=== PATIENT | male | born 1950 | race Two or more races ===

== ENCOUNTER 2016-09-27 22:47 | Emergency (ER) | payer BC ==
[2016-09-27 23:12] VITALS: BP 153/76; PULSE 86; TEMP 98.3; BMI 37.5
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
== END 2016-09-28 02:43 | disposition home or self-care (01) ==
LOC: JER 22:47
DX: S05.12XA Contusion of eyeball and orbital tissues, left eye, initial encounter (principal); S00.211A Abrasion of right eyelid and periocular area, initial encounter; S00.01XA Abrasion of scalp, initial encounter; S21.012A Laceration without foreign body of left breast, initial encounter; Y04.2XXA Assault by strike against or bumped into by another person, initial encounter; Y93.89 Activity, other specified; Y92.018 Other place in single-family (private) house as the place of occurrence of the external cause; Y07.499 Other family member, perpetrator of maltreatment and neglect
CPT/HCPCS: 70450-TC; 71020-TC; 71101-TC; 99282-25

== ENCOUNTER 2019-02-01 12:41 | Emergency (ER) | payer OTHER, BC ==
[2019-02-01] MEDS ORDERED: DIPHTH,PERTUSS(ACELL),TET 0.5 ML DISP.SYRIN IM ONE ×2 (12:44→13:31)
--- NOTE | 2019-02-01 12:49 | PDOC ---
Rapid Medical Evaluation Chief Complaint: Laceration Time Seen by Provider: 02/01/19 12:44 Medical Evaluation: Allergies Allergy/AdvReac Type Severity Reaction Status Date / Time No Known Allergies Allergy Verified 12/12/11 10:04 02/01/19 12:44 I performed a brief in-person evaluation of this patient. Briefly, this is a healthy 69-year-old male with left 2nd finger laceration while pruning villatoro. Left 2nd finger small laceration not involving nail, no other significant physical exam findings. I have ordered the following: tetanus booster. Patient to proceed to FT for further evaluation. Discharge Disposition - Diagnosis Finger laceration - Discharge Dispostion Condition at time of disposition: Stable - Referrals - Patient Instructions - Post Discharge Activity
[2019-02-01 12:58] VITALS: BP 160/70; PULSE 74; TEMP 99.1; BMI 34.2
--- NOTE | 2019-02-01 13:41 | PDOC ---
History of Present Illness - General Chief Complaint: Laceration Stated Complaint: L FINGER INJURY Time Seen by Provider: 02/01/19 12:44 History Source: Patient - History of Present Illness Initial Comments: 02/01/19 13:28 69 year old reports that he was pruning villatoro and accidentally cut the left index finger. patient reports that he put croatian medicine on it to stop the bleed. no pmhx last tetanus unknown Past History - Past Medical History Allergies/Adverse Reactions: Allergies Allergy/AdvReac Type Severity Reaction Status Date / Time No Known Allergies Allergy Verified 12/12/11 10:04 Home Medications: Ambulatory Orders Beta-Carotene(A) W-C & E/Min [Opti-Vitamins Tablet] 1 each PO DAILY 12/12/11 Ginkgo Biloba [place] Extract [Ginkgo] 60 mg PO DAILY 12/12/11 Multivitamin [Multivitamins] 1 each PO DAILY 12/12/11 Bacitracin - [Bacitracin Topical Ointment -] 1 applic TP BID #1 tube 02/01/19 Cephalexin Monohydrate [Keflex -] 500 mg PO BID #14 capsule 02/01/19 Anemia: No Asthma: No Cancer: No Cardiac Disorders: No CVA: No COPD: No CHF: No DVT: No Dementia: No Diabetes: No Dialysis: No GI Disorders: No Disorders: No HTN: No Hypercholesterolemia: No Kidney Stones: No Liver Disease: No Psychiatric Problems: No Seizures: No Thyroid Disease: No Lung CA: No - Surgical History Abdominal Surgery: No Appendectomy: No Cardiac Surgery: No Cholecystectomy: No Gastric Stapling: No GI Surgery: No Lung Surgery: No Neurologic Surgery: No Orthopedic Surgery: No - Immunization History Immunization Up to Date: Yes - Psycho Social/Smoking Cessation Hx Smoking History: Never smoked Have you smoked in the past 12 months: No Information on smoking cessation initiated: No Hx Alcohol Use: No Drug/Substance Use Hx: No Substance Use Type: None Hx Substance Use Treatment: No Review of Systems - Review of Systems Able to Perform ROS?: Yes Is the patient limited Arabic proficient: No Integumentary: Yes: Other (left index laceration) *Physical Exam - Vital Signs Last Vital Signs Temp Pulse Resp BP Pulse Ox 99.1 F 74 16 160/70 99 02/01/19 12:43 02/01/19 12:43 02/01/19 12:43 02/01/19 12:43 02/01/19 12:43 - Physical Exam General Appearance: Yes: Appropriately Dressed (2 cm laceration to left index finger) Extremity: positive: Normal Capillary Refill, Other (2 cm laceration to left index finger. + sensation o left index finger) Integumentary: positive: Normal Color, Dry Neurologic: positive: Fully Oriented, Alert, Normal Mood/Affect Procedures - Consent Consent obtained: Verbal - Laceration/Wound Repair Left Finger Wound Length: to 2.5 cm Wound Explored: clean Wound's Depth, Shape: superficial Irrigated w/ Saline: Yes Anesthesia: 1% Lidocaine Wound Debrided: minimal Suture Size/Type: 4:0 Number of Sutures: 6 Sterile Dressing Applied: Yes (bacitracin applied) ED Progress Note - Progress Note Progress Note: 02/01/19 14:53 A: finger laceration P: see procedure note. bacitracin applied. cephalexin prophylaxis given' Discharge - Discharge Information Problems reviewed: Yes Clinical Impression/Diagnosis: Finger laceration Qualifiers: Encounter type: initial encounter Finger: index finger Damage to nail status: without damage Foreign body presence: without foreign body Laterality: left Qualified Code(s): S61.211A - Laceration without foreign body of left index finger without damage to nail, initial encounter Condition: Stable Disposition: HOME - Additional Discharge Information Prescriptions: Bacitracin - [Bacitracin Topical Ointment -] 1 applic TP BID #1 tube Cephalexin Monohydrate [Keflex -] 500 mg PO BID #14 capsule - Follow up/Referral Referrals: Jessica Araujo MD [Primary Care Provider] - - Patient Discharge Instructions Patient Printed Discharge Instructions: DI for Laceration Repair Additional Instructions: Keep area clean dry and intact Keep dressing on until tomorrow If any increased bleeding through the dressing return immediately to emergency department Keep area clean dry and intact bacitracin x3 days, then let it dry out Please return in 10 days for suture removal. Please return immediately to emergency department with any increased redness, swelling, signs of infection - Post Discharge Activity
== END 2019-02-01 14:40 | disposition home or self-care (01) ==
LOC: JERFT 12:41
PROC: 3E0234Z Introduction of Serum, Toxoid and Vaccine into Muscle, Percutaneous Approach (ICD-10-PCS; principal; 2019-02-01)
PROC: 0HQGXZZ Repair Left Hand Skin, External Approach (ICD-10-PCS; 2019-02-01)
DX: S61.211A Laceration without foreign body of left index finger without damage to nail, initial encounter (principal); W27.1XXA Contact with garden tool, initial encounter; Y93.H2 Activity, gardening and landscaping; Y92.017 Garden or yard in single-family (private) house as the place of occurrence of the external cause; Y99.8 Other external cause status
CPT/HCPCS: 12001-25; 90471; 90715; 99281-25

== ENCOUNTER 2019-02-12 12:53 | Emergency (ER) | payer OTHER, BC ==
[2019-02-12 13:09] VITALS: BP 144/67; PULSE 70; TEMP 97.9; BMI 34.2
--- NOTE | 2019-02-12 13:52 | PDOC ---
Suture Removal/Wound Check HPI - History of Present Illness Chief Complaint: Suture/Staple Removal(Here) Stated Complaint: SUTURE REMOVAL Time Seen by Provider: 02/12/19 13:38 History Source: Yes: Patient Exam Limitations: Yes: No Limitations Treated at: [facility] - Previous ED Treatment Type of procedure performed on last visit: Yes: Laceration Repair Tetanus Immunization: Yes: Given at last ED visit Antibiotics Prescribed: Yes - Onset of Previous Treatment Date of Occurence: 02/01/19 Comment:: 02/12/19 13:52 7 sutures removed without complication. Patient tolerated well. Wound edges well approximated without erythema, swelling, discharge. Past History - Past Medical History Allergies/Adverse Reactions: Allergies Allergy/AdvReac Type Severity Reaction Status Date / Time No Known Allergies Allergy Verified 02/12/19 13:09 Home Medications: Ambulatory Orders Beta-Carotene(A) W-C & E/Min [Opti-Vitamins Tablet] 1 each PO DAILY 12/12/11 Ginkgo Biloba [place] Extract [Ginkgo] 60 mg PO DAILY 12/12/11 Multivitamin [Multivitamins] 1 each PO DAILY 12/12/11 Bacitracin - [Bacitracin Topical Ointment -] 1 applic TP BID #1 tube 02/01/19 Cephalexin Monohydrate [Keflex -] 500 mg PO BID #14 capsule 02/01/19 Anemia: No Asthma: No Cancer: No Cardiac Disorders: No CVA: No COPD: No CHF: No DVT: No Dementia: No Diabetes: No Dialysis: No GI Disorders: No Disorders: No HTN: No Hypercholesterolemia: No Kidney Stones: No Liver Disease: No Psychiatric Problems: No Seizures: No Thyroid Disease: No Lung CA: No - Surgical History Abdominal Surgery: No Appendectomy: No Cardiac Surgery: No Cholecystectomy: No Gastric Stapling: No GI Surgery: No Lung Surgery: No Neurologic Surgery: No Orthopedic Surgery: No - Immunization History Immunization Up to Date: Yes - Psycho Social/Smoking Cessation Hx Smoking History: Never smoked Have you smoked in the past 12 months: No Information on smoking cessation initiated: No Hx Alcohol Use: No Drug/Substance Use Hx: No Substance Use Type: None Hx Substance Use Treatment: No *Physical Exam - Vital Signs Last Vital Signs Temp Pulse Resp BP Pulse Ox 97.9 F 70 17 144/67 98 02/12/19 12:58 02/12/19 12:58 02/12/19 12:58 02/12/19 12:58 02/12/19 12:58 Discharge - Discharge Information Problems reviewed: Yes Clinical Impression/Diagnosis: Visit for suture removal Disposition: HOME - Admission No - Follow up/Referral - Patient Discharge Instructions Patient Printed Discharge Instructions: DI for Suture Removal - Post Discharge Activity
== END 2019-02-12 14:38 | disposition home or self-care (01) ==
LOC: JERFT 12:53
DX: Z48.817 Encounter for surgical aftercare following surgery on the skin and subcutaneous tissue (principal); Z48.02 Encounter for removal of sutures
CPT/HCPCS: 99281-25

== ENCOUNTER 2019-02-26 10:10 | Emergency (ER) | payer OTHER, BC ==
[2019-02-26 10:18] VITALS: BP 150/63; PULSE 71; TEMP 98.7; BMI 34.3
--- NOTE | 2019-02-26 11:09 | PDOC ---
Suture Removal/Wound Check HPI - History of Present Illness Chief Complaint: Suture/Staple Removal(Here) Stated Complaint: REVISIT Time Seen by Provider: 02/26/19 10:37 Treated at: [facility] - Previous ED Treatment Type of procedure performed on last visit: Yes: Laceration Repair Tetanus Immunization: Yes: Up to Date - Onset of Previous Treatment Comment:: 02/26/19 12:27 Patient returns with partial stitch still to index finger. Edges of wound well approximated with scab formation over laceration. Stitch particles removed without complication, patient tolerated well. Past History - Past Medical History Allergies/Adverse Reactions: Allergies Allergy/AdvReac Type Severity Reaction Status Date / Time No Known Allergies Allergy Verified 02/12/19 13:09 Home Medications: Ambulatory Orders Beta-Carotene(A) W-C & E/Min [Opti-Vitamins Tablet] 1 each PO DAILY 12/12/11 Ginkgo Biloba [place] Extract [Ginkgo] 60 mg PO DAILY 12/12/11 Multivitamin [Multivitamins] 1 each PO DAILY 12/12/11 Bacitracin - [Bacitracin Topical Ointment -] 1 applic TP BID #1 tube 02/01/19 Cephalexin Monohydrate [Keflex -] 500 mg PO BID #14 capsule 02/01/19 Anemia: No Asthma: No Cancer: No Cardiac Disorders: No CVA: No COPD: No CHF: No DVT: No Dementia: No Diabetes: No Dialysis: No GI Disorders: No Disorders: No HTN: No Hypercholesterolemia: No Kidney Stones: No Liver Disease: No Psychiatric Problems: No Seizures: No Thyroid Disease: No Lung CA: No - Surgical History Abdominal Surgery: No Appendectomy: No Cardiac Surgery: No Cholecystectomy: No Gastric Stapling: No GI Surgery: No Lung Surgery: No Neurologic Surgery: No Orthopedic Surgery: No - Immunization History Immunization Up to Date: Yes - Psycho Social/Smoking Cessation Hx Smoking History: Never smoked Have you smoked in the past 12 months: No Information on smoking cessation initiated: No Hx Alcohol Use: No Drug/Substance Use Hx: No Substance Use Type: None Hx Substance Use Treatment: No *Physical Exam - Vital Signs Last Vital Signs Temp Pulse Resp BP Pulse Ox 98.7 F 71 16 150/63 100 02/26/19 10:14 02/26/19 10:14 02/26/19 10:14 02/26/19 10:14 02/26/19 10:14 Discharge - Discharge Information Problems reviewed: Yes Clinical Impression/Diagnosis: Visit for suture removal Condition: Stable Disposition: HOME - Admission No - Follow up/Referral Referrals: Jessica Araujo MD [Primary Care Provider] - - Patient Discharge Instructions Patient Printed Discharge Instructions: DI for Suture Removal - Post Discharge Activity
== END 2019-02-26 11:10 | disposition home or self-care (01) ==
LOC: JERFT 10:10
DX: Z48.817 Encounter for surgical aftercare following surgery on the skin and subcutaneous tissue (principal); Z48.02 Encounter for removal of sutures
CPT/HCPCS: 99281-25

== ENCOUNTER 2020-07-29 16:07 | Emergency (ER) | payer OTHER, BC ==
[2020-07-29 16:30] VITALS: TEMP 98.1; BMI 38.2
[2020-07-29 19:03] VITALS: BP 153/63; PULSE 62
== END 2020-07-29 21:43 | disposition home or self-care (01) ==
LOC: JER 16:07
DX: S09.90XA Unspecified injury of head, initial encounter (principal)
CPT/HCPCS: 70450-TC; 70486-TC; 99284-25